=== PATIENT | female | born 1950 | race Caucasian/White ===

== ENCOUNTER 2018-12-12 15:46 | Emergency (ER) | payer MEDICARE, SELFPAY ==
[2018-12-12 15:49] VITALS: BP 136/81; PULSE 99; RESP 18; TEMP 36.9; O2SAT 94; BMI 22.1
[2018-12-12 16:35] VITALS: RESP 18
[2018-12-12] MEDS: 0.9% Normal Saline 1,000 ML 1000 ML IV (16:51)
[2018-12-12 16:57] LABS: Mucous, Urine 0 SEEN /hpf (<or=2+); Red Blood Cells-Urine 0 SEEN /hpf (0-5)
[2018-12-12 16:58] LABS: Basophil# 0.07 X10^3/uL; Basophil% 0.8 % (0-1); Eosinophil# 0.26 X10^3/uL; Eosinophils% 2.9 % (0-5); Hematocrit 36.5 % (37-47); Hemoglobin 11.7 g/dL (12.0-15.0); Lymphocyte % 22.1 % (19-41); Mean Corp Hgb Conc 32.1 g/dL (32-36); Mean Corpuscular Hgb 28.6 pg (27.0-32.0); Mean Corpuscular Volume 89.2 fL (81-99); Mean Platelet Vol. 9.4 fl (6.2-12.0); Monocyte# 0.66 X10^3/uL; Monocyte% 7.3 % (0-10); NRBC Flagged by Analyzer 0 % (0-5); Neutrophil # 6.04 X10^3/uL (2.7-7.7); Neutrophil % 66.7 % (47-70); Platelet Count 248 K/mm3 (150-450); RBC Distribution Width CV 13.2 % (11.6-14.6); RBC Distribution Width SD 43.3 fl (35.1-43.9); Red Blood Count 4.09 M/mm3 (4.2-5.4); White Blood Count 9.1 K/mm3 (4.4-11.0)
[2018-12-12 17:04] VITALS: RESP 14
[2018-12-12 17:04] LABS: Color, Urine Yellow (Yellow); Glucose, Dipstick Normal (Normal); Ketone-Dipstick Negative (Negative); Leukocyte Esterase-Dipstick 500 /ul (Negative); Nitrite-Dipstick Negative (Negative); Occult Blood-Urine Negative /ul (Negative); Protein-Dipstick 15 mg/dl (Negative); Specific Gravity, Urine 1.025 (1.002-1.030); Urine Bilirubin Dipstick Negative (Negative); Urine Clarity Sl. Cloudy (Clear); Urine Urobilinogen Normal (Normal)
[2018-12-12 17:11] LABS: Anion Gap 7 (5-15); BUN 17 mg/dL (7-18); BUN/Creat Ratio 19.5 RATIO (10-20); Calcium,Total 9.2 mg/dL (8.5-10.1); Chloride 105 mmol/L (98-107); Creatinine, Serum 0.87 mg/dL (0.55-1.02); EST Glomerular Filtration Rate 68 mL/min (>60); Est Glom Filt Rate - Afr Amer 83 mL/min (>60); Estimated Creatinine Clearance 57.13 ml/min; Glucose 95 mg/dL (74-106); Potassium 3.5 mmol/L (3.5-5.1); Sodium Level 140 mmol/L (136-145)
[2018-12-12 17:18] LABS: Bacteria 1+ /hpf (None Seen); Squamous Epithelial Cells - UA 0-5 SEEN /hpf (5-10); White Blood Cells 10-25 SEEN /hpf (0-5)
[2018-12-12 17:28] LABS: Alcohol, Blood (Medical)-Serum < 3.0 mg/dL
[2018-12-12 17:30] LABS: Amphetamine Urine VISTA NEGATIVE (<1000 ng/mL); Barbiturate Urine VISTA NEGATIVE (< 200 ng/mL); Benzodiazepine Urine VISTA NEGATIVE (< 200 ng/mL); Cocaine Urine VISTA NEGATIVE (< 300 ng/mL); Ecstacy Urine VISTA POSITIVE (< 500 ng/mL); Methadone Urine VISTA NEGATIVE (< 300 ng/mL); PCP Urine VISTA NEGATIVE (< 25 ng/mL); THC Urine VISTA NEGATIVE (< 50 ng/mL); Vista UDS pH Range 5
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
[2018-12-12] MEDS: Ceftriaxone 1 GM/50 ML BAG IV (18:07)
[2018-12-12 18:11] VITALS: BP 129/76; PULSE 96; RESP 16; O2SAT 95
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
--- NOTE | 2018-12-12 18:40 | CM.ED ---
SOCIAL WORK REFERRAL FAXED AND CALLED TO [facility]. AWAITING ACCEPTANCE. Yoly PRIDE, GAS LEAK INSPECTOR, BUSINESS BROKER.
--- NOTE | 2018-12-12 19:28 | CM.ED ---
SOCIAL WORK CALL FROM [facility], PATIENT ACCEPTED BY DR. MAXWELL. REPORT TO BE CALLED TO . UPDATED PATIENT, FAMILY, AND MEDICAL STAFF. COPY OF PINK SLIP FAXED TO [facility] PER REQUEST. Yoly PRIDE, IMAGE SCIENTIST, SALES ENABLEMENT SPECIALIST.
--- NOTE | 2018-12-12 19:32 | ED.DEP ---
ED Disposition - Plan for ED Patient: Prescriptions: Smz/Tmp Ds [Bactrim Ds] 1 tab PO BID #10 tab Prescription Printed Referrals: Frank Whitaker MD [Primary Care Provider] -
[2018-12-12 20:36] VITALS: BP 167/82; PULSE 75; RESP 18; TEMP 36.8; O2SAT 95
--- NOTE | 2018-12-12 20:42 | ED.RN ---
PT LEAVING DEPARTMENT.
--- NOTE | 2018-12-13 08:52 | CASEMGMT ---
Percy from [facility] called to ask if pt was here, as she went to do a home visit yesterday and pt was not there. SW explained pt was here in ED yesterday and transferred to [facility]. MONIKA Kasper
== END 2018-12-12 20:42 ==
LOC: ED 16:59
PROVIDERS: Emergency Provider Emergency Medicine; Family Provider Family Medicine; PCP Family Medicine
DX: R45.851 Suicidal ideations (principal); F32.9 Major depressive disorder, single episode, unspecified; N39.0 Urinary tract infection, site not specified; F41.9 Anxiety disorder, unspecified; Z79.899 Other long term (current) drug therapy
CPT/HCPCS: 80048; 80307; 80320; 81001; 83605; 85025; 96361; 96365; 96366; 99285; J7030; A4216; G0480